=== PATIENT | female | born 2000 | race Two or more races ===

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

== ENCOUNTER 2021-07-27 02:23 | Emergency (ER) | payer SELFPAY ==
[~2021-07-27] VITALS: Ht 152.4 cm; Wt 70.0 kg
[2021-07-27] MEDS ORDERED: ACETAMINOPHEN WITH CODEINE 300/30MG TABLET PO ONE (02:45)
[2021-07-27] MEDS ORDERED: TETANUS, DIPHTHERIA, PERTUSSIS VAC/PF 0.5ML (>10YR OLD) IM ONE (02:45)
[2021-07-27] MEDS ORDERED: BACITRACIN ZINC OINT UDPKT TOP ONE (02:45)
[2021-07-27] MEDS ORDERED: LIDOCAINE HCL/PF 1% 10 MG/ML 5ML VIAL INFIL ONE (02:45)
[2021-07-27 03:11] VITALS: BP 117/79
[2021-07-27] MEDS ORDERED: AMOX-424 MT (04:24)
[2021-07-27] MEDS ORDERED: BO1 TP (04:24)
== END 2021-07-27 05:09 | disposition home or self-care (01) ==
LOC: ER 02:37
DX: S61.210A Laceration without foreign body of right index finger without damage to nail, initial encounter (principal); S61.212A Laceration without foreign body of right middle finger without damage to nail, initial encounter; S61.214A Laceration without foreign body of right ring finger without damage to nail, initial encounter; S51.851A Open bite of right forearm, initial encounter; Z88.6 Allergy status to analgesic agent; Y04.1XXA Assault by human bite, initial encounter; W26.0XXA Contact with knife, initial encounter; Y93.89 Activity, other specified; Y92.018 Other place in single-family (private) house as the place of occurrence of the external cause
CPT/HCPCS: 12002; 90471; 90715; 99283; J3490